=== PATIENT | female | born 1965 | race Caucasian/White ===

== ENCOUNTER → 2017-12-13 15:45 | Outpatient (CLI) | payer OTHER, SELFPAY ==
--- NOTE | 2017-12-13 15:52 | HPBI_ITS ---
MAMMOGRAPHY - BILATERAL SCREENING REASON FOR EXAM: Female, 52 years old. Routine annual screening examination. PERTINENT HISTORY: Non-contributory. TECHNIQUE: Digital bilateral breast jose (3D mammographic acquisition) in the CC and MLO projections. 2-D mediolateral oblique (MLO) and craniocaudad (CC) views of both breasts were obtained. CAD: Full Field Digital Mammography with Computer Added Detection was performed. COMPARISON: Comparison is made with prior examination dated November 28, 2016. FINDINGS: Breast Composition: The breasts are heterogeneously dense, which may obscure small masses. There are no dominant masses or suspicious calcifications. No other significant abnormalities are identified. There has been no significant change since the prior study. HPBI/SCREENING MAMM (CAD), BILAT IMPRESSION: Stable bilateral screening mammogram. Yearly follow-up mammogram recommended. (A) ASSESSMENT CATEGORY: BIRADS Category 1: Negative. A letter regarding these results will be sent to the patient by the facility within 30 days. Approximately 10% of breast cancers are not detected by mammography. A normal mammogram should not delay biopsy of a clinically suspicious abnormality. [id number] Electronically Signed: Khalif Hurst MD at 8:09 EST Tel [phone], Service support ,
== END ==
PROVIDERS: Visit Provider Obstetrics & Gynecology
DX: Z12.31 Encounter for screening mammogram for malignant neoplasm of breast (principal)
CPT/HCPCS: 77063; 77067

== ENCOUNTER → 2018-01-10 14:15 | Outpatient (CLI) | payer OTHER, SELFPAY ==
[2018-01-16 14:01] LABS: HPV Reflexed? NOT INDICATED
== END ==
PROVIDERS: Visit Provider Obstetrics & Gynecology
DX: Z12.4 Encounter for screening for malignant neoplasm of cervix (principal)
CPT/HCPCS: 88175; G0145

== ENCOUNTER → 2018-11-27 13:30 | Outpatient (CLI) | payer OTHER, SELFPAY ==
[2018-11-27 15:26] LABS: Chlamydia Trachomatis by PCR Negative (Negative); Neisserai gonorrhoeae by PCR Negative (Negative); Probe Check PASS; Sample Adequacy Control PASS; Specimen Processing Control PASS
== END ==
PROVIDERS: Visit Provider Obstetrics & Gynecology
DX: Z11.3 Encounter for screening for infections with a predominantly sexual mode of transmission (principal)
CPT/HCPCS: 87491; 87591

== ENCOUNTER → 2018-12-31 14:17 | Outpatient (CLI) | payer OTHER, SELFPAY ==
[2019-01-06 14:34] LABS: HPV Reflexed? NOT INDICATED
== END ==
PROVIDERS: Visit Provider Obstetrics & Gynecology
DX: Z12.4 Encounter for screening for malignant neoplasm of cervix (principal)
CPT/HCPCS: 88175; G0145

== ENCOUNTER → 2019-02-18 | Outpatient (CLI) | payer OTHER, SELFPAY ==
--- NOTE | 2019-02-18 13:09 | BI_ITS ---
MAMMOGRAPHY - BILATERAL SCREENING REASON FOR EXAM: Female, 53 years old. Routine annual screening examination. PERTINENT HISTORY: Non-contributory. TECHNIQUE: Digital bilateral breast jose (3D mammographic acquisition) in the CC and MLO projections. 2-D mediolateral oblique (MLO) and craniocaudad (CC) views of both breasts were obtained. CAD: Full Field Digital Mammography with Computer Added Detection was performed. COMPARISON: Comparison is made with prior study dated December 13, 2017 and June 28, 2017. FINDINGS: Breast Composition: The breasts are heterogeneously dense, which may obscure small masses. There are no dominant masses or suspicious calcifications. No other significant abnormalities are identified. There has been no significant change since the prior study. BI/SCREENING MAMM (CAD), BILAT IMPRESSION: Stable bilateral screening mammogram. Yearly follow-up mammogram recommended. (A) ASSESSMENT CATEGORY: BIRADS Category 1: Negative. A letter regarding these results will be sent to the patient by the facility within 30 days. Approximately 10% of breast cancers are not detected by mammography. A normal mammogram should not delay biopsy of a clinically suspicious abnormality. [id number] Electronically Signed: Khalif Hurst, at 15:10 EDT , Service support ,
== END | disposition home or self-care (01) ==
PROVIDERS: Family Provider Family Medicine; PCP Family Medicine; Referring Provider Obstetrics & Gynecology; Visit Provider Obstetrics & Gynecology
DX: Z12.31 Encounter for screening mammogram for malignant neoplasm of breast (principal)
CPT/HCPCS: 77063; 77067

== ENCOUNTER → 2019-04-30 | Outpatient (CLI) | payer OTHER, SELFPAY ==
--- NOTE | 2019-04-30 12:16 | RAD_ITS ---
STUDY: X-RAY - BILATERAL, Knee(s) REASON FOR EXAM: Female, 54 years old. Old complex to the medial meniscus, left knee. TECHNIQUE: Bilateral tunnel view, weightbearing, bilateral AP weightbearing COMPARISON: None. FINDINGS: Right medial compartment, mild articular surface flattening of the femoral condyle. No significant joint margin osteophytic lipping. No significant spurring of the intercondylar spine. Left knee, there is also mild flattening of the articular surface of the femoral condyle medially. No significant joint margin osteophytic lipping. No significant spurring of the intercondylar spine. RAD/Knees Standing AP Bilateral IMPRESSION: There is minimal flattening of the articular surfaces of the medial femoral condyles bilaterally. There are no significant degenerative features. Electronically Signed: Ezra Bravo MD at 8:29 EDT Tel , Service support ,
--- NOTE | 2019-04-30 12:19 | RAD_ITS ---
STUDY: X-RAY - LEFT KNEE REASON FOR EXAM: Female, 54 years old. Old complex tear medial meniscus left knee, follow-up. TECHNIQUE: Lateral and patella sunrise view(s) of the knee. COMPARISON: None. FINDINGS: No apparent effusion. Trace superior joint margin osteophytic spurring of the patellofemoral articulation. No apparent degenerative features medial and lateral compartments. Evaluation is limited by the absence of frontal view. Periarticular soft tissues unremarkable. RAD/Knee 1 or 2 Views IMPRESSION: Very minimal DJD. Electronically Signed: Ezra Bravo MD at 8:27 EDT Tel , Service support ,
== END | disposition home or self-care (01) ==
LOC: HPRAD 12:12
PROVIDERS: Family Provider Family Medicine; PCP Family Medicine; Referring Provider Family Medicine; Visit Provider Family Medicine
DX: M23.204 Derangement of unspecified medial meniscus due to old tear or injury, left knee (principal)
CPT/HCPCS: 73560; 73565

== ENCOUNTER → 2019-08-28 | Outpatient (CLI) | payer OTHER, SELFPAY ==
--- NOTE | 2019-08-28 11:15 | CER_PTH ---
PATIENT: CHRISTINE HARRELL LOC: [facility] U#:[id number] AGE/SX: 54/F ROOM: RE08/28/[address]: Dr. Jael Nevarez MD : 1965 BED: DIS: 08/28/2019 SPEC #: [id number] RECD: 08/28/19 16:03 STATUS: WEN JOSE #: [id number] DENYS: 08/28/19 11:[address]: Jael Nevarez DEPT: SURGICAL PATHOLOGY RECD BY: Juventino Min ENTERED: 08/31/19 09:27 SP TYPE: CERV OTHR DR: Dr. Theo Covington MD Tissues: Uterine cervix, NOS Procedures: Surgery Specimen Level IV HEADER OPERATION: Cervical polypectomy PRE-OP DIAGNOSIS: Irregular bleeding TISSUE SUBMITTED: Cervical polyp MICROSCOPIC DIAGNOSIS Cervical polyp, polypectomy: Fragments of benign cervical polyp, inflamed. See comment. AM:elvin 09/01/19 COMMENT The polyp has both ectocervical and endocervical mucosa represented. Clinical correlation is suggested. MICROSCOPIC DESCRIPTION Slides are reviewed. GROSS DESCRIPTION Received is one container labeled with the patient's name and not further designated. The specimen consists of a piece of pino-pink polyp measuring 1.5 x 0.5 x 0.5 cm. Also present in the container are multiple pieces of pino mucoid tissue measuring in aggregate 0.5 x 0.5 x 0.1 cm. The polyp is bisected. The entire specimen is submitted in one cassette. / SJ:rg 08/31/19 TC:1 CPT: 13235
== END | disposition home or self-care (01) ==
LOC: LABSPEC 14:11
PROVIDERS: Family Provider Family Medicine; PCP Family Medicine; Visit Provider Obstetrics & Gynecology
DX: N92.6 Irregular menstruation, unspecified (principal)
CPT/HCPCS: 88305

== ENCOUNTER → 2020-08-29 | Outpatient (CLI) | payer OTHER, SELFPAY ==
[2020-08-29 09:23] VITALS: BMI 27.4
[2020-09-05 04:38] LABS: HPV APTIMA, High Risk Negative (Negative)
== END | disposition home or self-care (01) ==
LOC: LABSPEC 13:46
PROVIDERS: PCP Family Medicine; Referring Provider Obstetrics & Gynecology; Visit Provider Obstetrics & Gynecology
DX: Z12.4 Encounter for screening for malignant neoplasm of cervix (principal)
CPT/HCPCS: 87624; 88175; G0145

== ENCOUNTER → 2020-09-05 | Outpatient (CLI) | payer OTHER, SELFPAY ==
[2020-09-05 10:31] VITALS: BMI 26.9
== END | disposition home or self-care (01) ==
LOC: LABSPEC 14:33
PROVIDERS: PCP Family Medicine; Referring Provider Obstetrics & Gynecology; Visit Provider Obstetrics & Gynecology
DX: N93.9 Abnormal uterine and vaginal bleeding, unspecified (principal)

== ENCOUNTER 2020-09-23 05:30 | Day surgery (SDC) | payer OTHER, SELFPAY ==
[2020-09-05 10:31] VITALS: BMI 26.9
--- NOTE | 2020-09-21 10:56 | EKG12_ITS ---
Test Reason : PRE-OP Blood Pressure : / mmHG Vent. Rate : 069 BPM Atrial Rate : 069 BPM P-R Int : 130 ms QRS Dur : 104 ms QT Int : 402 ms P-R-T Axes : 015 049 049 degrees QTc Int : 430 ms Normal sinus rhythm Normal ECG Confirmed by RAFA YEE, JUAN ([id number]), film editor supervisor NEENA WESTON ([id number]) on 09/22/2020 10:52:19 AM Referred By: Shameka Hoff Confirmed By:JUAN CRAIG MD
[2020-09-21 11:12] LABS: Hematocrit 40.8 % (37-47); Hemoglobin 13.6 g/dL (12.0-15.0); Mean Corp Hgb Conc 33.3 g/dL (32-36); Mean Corpuscular Hgb 32.7 pg (27.0-32.0); Mean Corpuscular Volume 98.1 fL (81-99); Mean Platelet Vol. 8.8 fl (6.2-12.0); Platelet Count 251 K/mm3 (150-450); RBC Distribution Width CV 12.1 % (11.6-14.6); RBC Distribution Width SD 43.8 fl (35.1-43.9); Red Blood Count 4.16 M/mm3 (4.2-5.4); White Blood Count 5.1 K/mm3 (4.4-11.0)
[2020-09-21 11:25] LABS: Magnesium 2.3 mg/dL (1.6-2.6)
--- NOTE | 2020-09-22 19:08 | PCM.HPOB.BLA ---
- Problem List (1) Uterovaginal prolapse Status: Acute History and Physical Date of Admission: 09/23/20 Intake Vital Signs 08/29/20 Height 5 ft 10 in 08/29/20 Weight: 191 lb 2 oz 08/29/20 BP 124/88 H Intake Visit Reasons: New pt, Surgical consult, mamta Freedman [employer] Required: No Is patient in pain?: No Allergies No Known Allergies Allergy (Verified 08/29/20 09:23) Medications bupropion HCl 150 mg 24 hr tablet, extended release 150 mg PO QAM 08/29/20 [History Confirmed 08/29/20] conjugated estrogens 0.625 mg/gram vaginal cream 0.625 mg VAGINAL DAILY 08/29/20 [History Confirmed 08/29/20] Is last menstrual period known: No Post menopausal: No Patient : No : No PFSH Medical History Anxiety (Acute) Surgical History (Updated 08/29/20 @ 09:25 by Светлана Romano) s/p lump removed (Resolved) Family History (Updated 08/29/20 @ 09:25 by Светлана Romano) Father Lung cancer Mother Thyroid cancer Other Cancer Social History (Updated 08/30/20 @ 09:[address] Yael Rios MD) Smoking Status: Never smoker alcohol intake: current details: occasionally substance use type: does not use caffeine: Yes what type of physical activity do you participate in: walking, bicycling frequency: 5-6 times per week seatbelt use: always do you feel safe at home: Yes additional social history: - [place] HPI New pt, Surgical consult, mamta Freedman: Details: CHRISTINE HARRELL is a 55 year old who presents for referral for pelvic organ prolapse. Reports notices pelvic pressure. Reports that this has become gradually worse over the past few years. Patient seen by Dr. Hoff who did not feel that she was a candidate for a pessary as her prolapse is too severe. Patient also reports recent period. Has has intermittent spotting over the past year, but not a full period. Pregancy History 4 Elective abortions Hx Para 3 Spontaneous abortions Hx # Term Pregnancies Ectopic pregnancies Hx # Pregnancies Multiple births # of living children Past Pregnancies Del. Date Name GA/Weeks Outcome Route Bth Weight Gen Labor Lgth Anesthesia Del [facility] Provider FOB Unknown Vick Unknown German Unknown Damon ROS Const Constitutional: Reports system reviewed and no additional complaints, except as docu Eyes Eyes: Reports system reviewed and no additional complaints, except as docu ENT ENT: Reports system reviewed and no additional complaints, except as docu Cardio Card: Reports system reviewed and no additional complaints, except as docu Resp Resp: Reports system reviewed and no additional complaints, except as docu GI GI: Reports system reviewed and no additional complaints, except as docu : Reports prolapse symptoms; denies blood in urine, pelvic pain, sexual problems, urinary hesitancy, urinary urgency, vaginal discharge, vaginal dryness, vaginal odor or vaginal itching Musc Musc: Reports system reviewed and no additional complaints, except as docu Skin Skin/Breast: Reports system reviewed and no additional complaints, except as docu Neuro Neuro: Reports system reviewed and no additional complaints, except as docu Psych Psych: Reports system reviewed and no additional complaints, except as docu Exam Const General: cooperative, healthy appearing, comfortable, no acute distress, well developed, well groomed Nutritional Appearance: average body habitus, well nourished Orientation: alert, awake, oriented x3 HENMT Head: normal to inspection, normocephalic, atraumatic Eyes Pupils: PERRL, accommodation normal EOM: EOM intact bilaterally Resp Effort & Inspection: normal respiratory effort, able to speak in complete sentences, symmetric chest movement Cardio Rate: regular rate GI Inspection: normal to inspection, non-distended Palpation: soft, no guarding, no masses, not rigid, nontender General: bladder normal to palpation External Female Exam: normal external appearance, normal appearance of the urethra, no erythema, no tenderness externally, no lesions, No lesion of urethra Urethra: normal appearance of the urethra, no lesions Speculum Exam - Vagina: normal appearance of the vagina, normal vaginal discharge, normal vaginal discharge, not erythematous, no lacerations, no lesions, No vaginal bleeding, no masses, no swelling, nontender Speculum Exam - Cervix: normal appearance of the cervix, no cervical discharge, no lesions, no masses, nontender Bimanual Exam- Vagina & Uterus: normal bimanual exam, normal vaginal palpation, uterine size normal, bladder normal to palpation, uterine shape normal, No cervical tenderness, uterine mobility normal, uterine consistency normal, normal cervical palpation, uterus non-tender Bimanual Exam- Adnexa, other: normal adnexae, adnexae mobile, no adnexal masses, adnexae non-tender, No cul-de-sac fullness, No cul-de-sac tenderness, No cul-de-sac nodularity, rectocele, cystocele, vaginal apex descent (stage II) Recto-Vaginal: no cul-de-sac fullness, no cul-de-sac tenderness, no cul-de-sac nodularlity Pelvic Support: cystocele, rectocele, vaginal apex descent (stage II) OB/External & Speculum: No vaginal bleeding Speculum Exam: no vaginal bleeding Neuro General: alert, awake, oriented x3, CN's II-XI intact bilaterally Cranial Nerves: PERRL, accommodation normal, EOM intact bilaterally Cognition: normal cognition Speech: speech normal Gait: normal gait Psych Appearance: grossly normal, well kempt Mental Status: mental status grossly normal Affect: normal affect Speech and Movement: speech and movement normal Attitude: cooperative Thought Process: normal Thought Content: normal Judgment: judgment good Assessment & Plan 1. Incomplete uterovaginal prolapse N81.2 Plan Patient presents as referral for pelvic organ prolapse from Dr. Hoff. Plans to have pelvic floor reconstruction. Discussed performing hysterectomy at the time of pelvic floor reconstruction. Recommend EMB prior to surgery as patient is still having intermittent bleeding and it is necessary to rule out endometrial cancer or hyperplasia. Pap performed today. Risks, benefits, indications, and alternatives to the procedure were discussed with the patient including bleeding, infection, and visceral or vascular injury. Discussed the possibility of excessive blood loss due to vascular injury or bleeding with fibroid uterus. Patient is agreeable to blood transfusion if medically necessary. Discussed the possibility of infection at the incision sites, inside the abdomen, or at the vaginal cuff. Discussed that this could require repeat hospitalization or reoperation. We discussed the possibility of damage to surrounding structures. Discussed the possibility of injury to bowel, bladder, or ureters. Discussed that if one of these injuries was identified at the time of the procedure, we would consider an intraoperative consult with general surgery or urology. Discussed that this could require laparoscopy or laparotomy to repair. Discussed the possibility of delayed diagnosis of bowel, bladder, or ureteral injury, and that this could require hospitalization after discharge. Patient is aware that in the event of injury to bowel bladder, bladder, or ureters she could require additional surgical interventions. We discussed the risks and benefits of oophorectomy at the time of hysterectomy. She has not fully gone through menopause and wishes to keep her ovaries. Recommend salpingectomy if able at the time of hysterectomy. Discussed that there is a possibility that we would not be able to complete salpingectomy at the time of surgery. Patient voices good understanding of the above and all questions were answered. Handouts provided from [facility] and up-to-date with information regarding surgery. UPDATE- I have seen the patient and performed any clinically relevant updates to the history and physical exam. Yael Rios MD
[2020-09-23] VITALS (17 sets, daily range): BP systolic 94–131; BP diastolic 54–84; PULSE 58–103; RESP 16–18; TEMP 36–36.9; O2SAT 85–100; BMI 26.9
[2020-09-23 06:11] LABS: Bedside Glucose 117 mg/dL (70-110)
[2020-09-23 06:16] LABS: Internal QC Validated? YES +Cl - CLEAR BKGD; Pregnancy, Urine Negative Negative
[2020-09-23] MEDS: dexAMETHasone 4 MG/ML Vial 8 MG IV (06:17)
[2020-09-23] MEDS: Acetaminophen 500 MG Tablet 1000 MG PO ×3 (06:32→22:06)
[2020-09-23] MEDS: Celecoxib 200 MG Capsule 400 MG PO (06:33)
[2020-09-23] MEDS: Lactated Ringers 1,000 ML 40 ML IV (07:00)
--- NOTE | 2020-09-23 07:30 | HYST_PTH ---
PATIENT: CHRISTINE HARRELL LOC: [facility] [place] U#:[id number] AGE/SX: 55/F ROOM: RE09/23/[address]: Dr. Shameka Hoff MD : 1965 BED: DIS: 09/24/2020 SPEC #: [id number] RECD: 09/23/20 13:24 STATUS: WEN JOSE #: [id number] DENYS: 09/23/20 07:[address]: Shameka Hoff DEPT: SURGICAL PATHOLOGY RECD BY: Gemma Fang ENTERED: 09/23/20 13:54 SP TYPE: HYSTERECT OTHR DR: MD Dr. Theo Joiner MD Tissues: Uterus, NOS Procedures: Surgery Specimen Level V HEADER OPERATION: ERAS, vaginal hysterectomy, salpingectomy PRE-OP DIAGNOSIS: Incomplete uterovaginal prolapse TISSUE SUBMITTED: Uterus, cervix, bilateral fallopian tubes MICROSCOPIC DIAGNOSIS Uterus, hysterectomy: Cervix - nabothian cysts and mild chronic inflammation. Endometrium - proliferative endometrium. Myometrium - adenomyosis and leiomyomas. Right and left fallopian tubes - no pathologic change. AM:elvin 09/26/20 MICROSCOPIC DESCRIPTION Slides are reviewed. GROSS DESCRIPTION Received in fixative is one container labeled with the patient's name and designated uterus, cervix, bilateral fallopian tube. The specimen consists of a hysterectomy specimen consisting of uterus with cervix and detached bilateral fallopian tubes. The uterus with cervix weighs 78 gm and measures 9.5 x 5.5 x 4 cm. The serosal surface is pino, glistening. The ectocervical mucosa is unremarkable. The external os is oval and patulous in contour. The endocervical canal measures 3 cm in length and the endocervical mucosa is unremarkable. Sections of the cervix reveal multiple cysts filled with mucoid material. The triangular endometrial cavity measures 4 cm in length and 3 cm in width. The endometrium is pino, glistening without any mass lesion and measures 0.2 cm in thickness. Sections of the uterine wall reveal three nodular masses. The largest mass measures 1.5 cm in greatest dimension. Sections of these masses reveal pino whorled cut surfaces without areas of hemorrhage, necrosis or cystic degeneration. The uninvolved uterine wall measures 2 cm in thickness. The fallopian tubes are not identified as right or left and measures 3.5 and in length and 0.5 cm in diameter and 4 cm in length and 0.6 cm in diameter. The fimbrial end is identified. Sections reveal unremarkable cut surfaces. Medical Claims Manager sections are submitted in nine cassettes as follows: 1 - anterior cervix, 2 - posterior cervix, 3 & 4 - anterior uterine wall, 5 & 6 - posterior uterine wall, 7 - nodular masses, 8 & 9 - bilateral fallopian tubes with each cassette containing one fallopian tube. / ANCELMO:elvin 09/23/20 TC:1 CPT: 03209
[2020-09-23] MEDS: Cefazolin 2 GM in 0.9% Normal Saline 100 ML IV (07:45)
--- NOTE | 2020-09-23 07:45 | OP.PCM_ITS ---
Problem List (1) Uterovaginal prolapse Status: Acute Report of Operation Date of Procedure: 09/23/20 Pre-Operative Diagnosis: Uterovaginal prolapse Post-Operative Diagnosis: Same Surgery/Procedure Performed:: Anterior and posterior repair, sacrospinous ligament fixation, cystoscopy Type of Anesthesia:: General Estimated Blood Loss (mL): 25cc Description of Procedure: The patient is a 55-year-old female who presented to the office with pelvic organ prolapse desiring surgical intervention after discussing options. She was evaluated with urodynamics and cystoscopy and agreed to proceed after discussion of all risks benefits and alternatives. Informed consent also included a discussion of the risks of COVID-19. The patient was taken to the operating room placed on the operating room table. Anesthesia monitor the head, neck, airway, IV access and vital signs throughout the case. Once anesthesia was appropriate administered the patient was placed into dorsal lithotomy position in Trendelenburg. A Iglesias catheter was inserted to straight drain and the bladder was emptied. A vaginal hysterectomy and bilateral salpingoectomy was performed by Dr. Rios. At this time the case was turned to nj after closure of the vaginal cuff. With the uterus out, the apex of the vagina required support, there was very minimal cystocele present and there was a lack of posterior support. The decision was made to provide further apical support with a sacrospinous ligament fixation on the patient's right side in addition to a posterior repair. The posterior vaginal wall was isolated and injected submucosally with vasopressin. A midline incision was made in both sharp and blunt dissection was performed until the rectovaginal fascia was identified bilaterally. On the right side blunt dissection continued until the sacrospinous ligament was identified and freed from surrounding tissues. Using the Capio device, a Monodek suture was passed through the sacrospinous ligament and then passed into the apex of the vagina in full-thickness fashion through the vaginal mucosa. The rectovaginal fascia was then brought together with interrupted 2-0 Vicryl. The perineal body was supported also with 2-0 Vicryl sutures. The posterior vaginal wall mucosa was then brought together with running interlocking 2-0 Vicryl. The sacrospinous ligature was then tied down. A cystourethroscopy was performed through the urethra revealing no injury to the urinary bladder or urethra. A 5 Mauritian whistle-tip catheter was easily inserted into each ureteral orifice and advanced to 20 cm bilaterally. There is no evidence of blood or obstruction. The cystoscope was removed and the Iglesias catheter was replaced. The patient's vagina was packed with Premarin cream and vaginal packing. She was awakened and taken to the recovery room in good condition. There were no complications during this procedure. Grafts/Implants Used: None - Complications None - Admit VTE Documentation VTE Present on Admission: Yes VTE Mechan Device Prophylaxis: SCD's VTE Pharm Prophylaxis ordered?: Yes
--- NOTE | 2020-09-23 07:47 | DCINST_ITS ---
Discharge Diet: No Restrictions Discharge Activity: May Shower May resume sexual activity in: 8 weeks Additional Activity Instructions:: No exercise, no strenuous activity, no lifting over 5 pounds, no swimming, tub bathing, hot tubs, no sexual activity, no vacuuming Call your doctor if your incision/area has: Continuous Slow Oozing, Sudden Increased Bleeding, Increased Pain/ Swelling, Increased Redness, Foul Smelling Discharge, Swelling at the incision site Call your doctor if you observe: Fever of 101 or Higher, Inability to urinate, Inability to have a bowel movement Allergies/Adverse Reactions: Allergies No Known Allergies Allergy (Verified 09/23/20 06:11) Medications to take at Discharge bupropion HCl 150 mg 24 hr tablet, extended release 150 mg PO BID 08/29/20 conjugated estrogens 0.625 mg/gram vaginal cream 0.625 mg VAGINAL .TWICE WEEKLY 08/29/20 Multivitamin 1 ea PO DAILY 09/13/20 Cephalexin [Keflex] 500 mg PO Q12 3 Days #6 cap 09/23/20 The following prescriptions were given: Cephalexin [Keflex] 500 mg PO Q12 3 Days #6 cap Transmission Status: Pending to [facility] Primary Care Physician: Theo Covington MD [Primary Care Provider] - Test Results: Test results from this visit will be discussed in further detail at your follow- up appointment, if applicable. Please Follow Up With: Shameka Hoff MD When: call office for appt Proposed Discharge Date: 09/24/20
[2020-09-23] MEDS: dexAMETHasone 10 MG/ML Vial 8 MG IV (07:55)
[2020-09-23] MEDS: Estrogens,Conj. 1 Tube 1 DOSE (08:10)
[2020-09-23] MEDS: Vasopressin 20 UNITS/ML Vial (08:10)
[2020-09-23] MEDS: Lactated Ringers 1,000 ML 70 ML IV (08:15)
--- NOTE | 2020-09-23 11:30 | EKG12_ITS ---
Test Reason : POST OP Blood Pressure : / mmHG Vent. Rate : 073 BPM Atrial Rate : 073 BPM P-R Int : 142 ms QRS Dur : 106 ms QT Int : 438 ms P-R-T Axes : 065 061 060 degrees QTc Int : 482 ms Normal sinus rhythm Nonspecific T wave abnormality Prolonged QT Abnormal ECG Confirmed by RAFA YEE, JUAN ([id number]), design editor NEENA WESTON ([id number]) on 09/28/2020 1:12:21 PM Referred By: Shameka Hoff Confirmed By:JUAN CRAIG MD
[2020-09-23] MEDS: Ketorolac 30 MG/ML Syringe IV ×2 (13:22→18:17)
[2020-09-23] MEDS: Ondansetron 4 MG/2 ML Vial IV (13:22)
[2020-09-23] MEDS: 0.9% Saline Lock 10 ML Syringe IV (13:22)
--- NOTE | 2020-09-23 13:26 | PCM.OPRPT ---
Problem List (1) Uterovaginal prolapse Status: Acute Report of Operation Date of Procedure: 09/23/20 Pre-Operative Diagnosis: Pelvic organ prolapse Post-Operative Diagnosis: Same Surgery/Procedure Performed:: Total vaginal hysterectomy, bilateral salpingectomy Description of Surgical Findings:: Stage III pelvic organ prolapse. Normal-appearing uterus, cervix, bilateral tubes and ovaries patient support representative: Shameka Hoff Type of Anesthesia:: General Specimen's removed: Uterus, cervix, bilateral fallopian tubes Estimated Blood Loss (mL): 100 cc Description of Procedure: Patient was taken to the operating room and was placed under general anesthesia was prepped and draped in normal sterile fashion in the dorsal lithotomy position. Preoperative antibiotics and SCDs and Iglesias catheter was placed inside the bladder. Weighted speculum was placed in the vagina and the anterior and posterior lip of the cervix was grasped with 2 Brendon clamps and circumferentially injected with dilute vasopressin. A circumferential incision was made with a scalpel and the posterior cul-de-sac was entered into sharply and a longneck speculum was placed. The anterior cul-de-sac was also dissected down and entered into sharply and the uterosacral ligaments were clamped cut and suture ligated bilaterally followed by the cardinal ligaments which were Clamped cut and suture ligated bilaterally with 0 Vicryl. The uterus serially descended and progressive bites were taken bilaterally up to the level of the utero-ovarian ligament bilaterally which was clamped transected and double ligated with 0 Vicryl suture and 0 Vicryl free tie. Bilateral fallopian tubes and ovaries were well visualized and noted be within normal limits and the bilateral fallopian tubes were then clamped across the mesosalpinx with a Karena clamp, transected, and tied off. Excellent hemostasis was noted. Posterior peritoneum and the vagina were closed with [id number] 0 Vicryl pop offs including the posterior and anterior peritoneum in the reapproximation. Excellent hemostasis was noted. All instruments removed from the vagina clear urine was noted at the end of the procedure and counts were correct. next Dr Hoff proceeded with her portion of the procedure. - Complications None apparent - Admit VTE Documentation VTE Present on Admission: No VTE Mechan Device Prophylaxis: SCD's VTE Pharm Prophylaxis ordered?: No Multi Select Codes - Urinary/Genital Urinary/Genital CPT Codes: 33902 TVH+BS/O <250gr uterus
[2020-09-24 01:30] VITALS: BP 103/58; PULSE 61; RESP 16; TEMP 36.5; O2SAT 96
[2020-09-24] MEDS: Ketorolac 30 MG/ML Syringe IV ×2 (01:30→06:19)
[2020-09-24 06:16] VITALS: BP 93/66; PULSE 64; RESP 16; TEMP 37; O2SAT 95
[2020-09-24] MEDS: Acetaminophen 500 MG Tablet 1000 MG PO (06:19)
[2020-09-24 07:08] VITALS: O2SAT 96
[2020-09-24 07:15] LABS: Mean Corp Hgb Conc 32.4 g/dL (32-36); Mean Corpuscular Hgb 32.3 pg (27.0-32.0); Mean Corpuscular Volume 99.5 fL (81-99); Mean Platelet Vol. 9.2 fl (6.2-12.0); Platelet Count 225 K/mm3 (150-450); RBC Distribution Width SD 43.9 fl (35.1-43.9); Red Blood Count 3.72 M/mm3 (4.2-5.4)
--- NOTE | 2020-09-24 08:50 | PCM.PN.OB ---
Patient Problems: Active and Suspected Problems (Last Reviewed 09/05/20 @ 10:31 by Светлана Romano) Uterovaginal prolapse (Acute) Subjective: Pain controlled. Doing well. No SOB, CP. Ambulating and tolerating po. - Physical Exam Vitals/I&O's: Vital Signs Temp Pulse Resp BP Pulse Ox 98.6 F 64 16 93/66 95 09/24/20 06:16 09/24/20 06:16 09/24/20 06:16 09/24/20 06:16 09/24/20 06:16 Oxygen Flow Rate (L/min) 2 Oxygen Delivery Method Room Air Weight: 187 lb 6.287 oz Body Mass Index (BMI) 26.9 Intake and Output for Last 24 Hours 09/22/20 09/23/20 09/24/20 23:59 23:59 23:59 Intake Total 1967.5 / 1967.5 Output Total 2850 / 2850 850 / 850 Balance -882.5 / -882.5 -850 / -850 General: Alert, Oriented x3 Abdomen: Soft, Non-Distended, - - Dressing dry and intact. Appropriately tender Microbiology Past 72 Hours 09/21/20 11:09 Interface Orders SARS-CoV-2 Antigen (Rapid) - Final Laboratory Results 09/24/20 06:36: WBC 9.0, RBC 3.72 L, Hgb 12.0, Hct 37.0, MCV 99.5 H, MCH 32.3 H, MCHC 32.4, RDW Std Deviation 43.9, RDW Coeff of Mei 12.0, Plt Count 225, MPV 9.2 Current Medications Acetaminophen (Acetaminophen 500 Mg Tablet) 1,000 mg PO Q8 YANCY Last Admin: 09/24/20 06:19 Dose: 1,000 mg Documented by: Sodium Chloride () 250 mls @ 15 mls/hr IV .[id number] PRN PRN Reason: Saline Flush Last Admin: 09/23/20 16:43 Dose: 15 mls/hr Documented by: Sodium Chloride () 250 mls @ 15 mls/hr IV .[id number] PRN PRN Reason: Additional IVPB Infusion Ketorolac Tromethamine (Ketorolac 30 Mg/Ml Syringe) 30 mg IV Q6H [facility] Stop: 09/28/20 13:16 Last Admin: 09/24/20 06:19 Dose: 30 mg Documented by: Ondansetron HCl (Ondansetron 4 Mg/2 Ml Vial) 4 mg IV Q4H PRN PRN PRN Reason: NAUSEA Last Admin: 09/23/20 13:22 Dose: 4 mg Documented by: Oxycodone HCl (Oxycodone 5 Mg Tablet) 5 - 10 mg PO Q4H PRN PRN PRN Reason: Pain Score 4-10 Sodium Chloride (0.9% Saline Lock 10 Ml Syringe) 10 - 40 ml IV UD PRN PRN Reason: SALINE FLUSH Last Admin: 09/23/20 13:22 Dose: 10 ml Documented by: Medical Necessity - Tobacco Use Smoking Status: Never smoker Tobacco Use: Non-smoker Assessment/Plan All Active Problems (Last Reviewed 09/05/20 @ 10:31 by Светлана Romano) Uterovaginal prolapse (Acute) Anxiety (Acute) TVH BS combo case with Dr Hoff. Stable See Dr Hoff's note and discharge information for patient. care Plans home today
[2020-09-24 10:30] VITALS: BP 106/64; PULSE 77; RESP 18; TEMP 36.6; O2SAT 97
--- NOTE | 2020-09-24 10:56 | PCM.PN.BLA ---
Progress Note Doing well. Tolerating PO intake, pain controlled, no issues overnight. Vital signs are good. Catheter and packing are out. POD#1 await trial of void home today follow up in the office in 2 weeks
== END 2020-09-24 12:25 | disposition home or self-care (01) ==
LOC: SDC 05:30 → AC 05:30 → MS3 12:14
PROVIDERS: Anesthesiology; Obstetrics & Gynecology; PCP Family Medicine; Referring Provider Urology; Visit Provider Urology
PROC: (CPT 58260; principal; 2020-09-23 07:10)
PROC: (CPT 57260; 2020-09-23 07:10)
DX: N81.2 Incomplete uterovaginal prolapse (principal); N72 Inflammatory disease of cervix uteri; N80.0 Endometriosis of uterus; D25.9 Leiomyoma of uterus, unspecified; N88.8 Other specified noninflammatory disorders of cervix uteri; F41.9 Anxiety disorder, unspecified; Z79.899 Other long term (current) drug therapy; Z20.828 Contact with and (suspected) exposure to other viral communicable diseases
CPT/HCPCS: 00944; 57260; 57282; 58262; 36415; 81025; 82962; 83735; 85027; 86850; 86900; 86901; 87426; 88307; 93005; C9803; J7050; J7120; A4216; C1758; J2405

== ENCOUNTER 2020-10-01 03:51 | Emergency (ER) | payer OTHER, SELFPAY ==
[2020-09-23 12:40] VITALS: BMI 26.9
[2020-10-01 03:52] VITALS: BP 127/95; PULSE 80; RESP 16; TEMP 36.3; O2SAT 98; BMI 26.5
[2020-10-01 04:23] LABS: Absolute Lymphocyte Count 1.37 X10^3/uL (0.83-4.51); Absolute Neutrophil Count 3.4 X10^3/uL (2.0-7.7); Basophil# 0.04 X10^3/uL; Basophil% 0.7 % (0-1); Eosinophils% 1.9 % (0-5); Hematocrit 36.9 % (37-47); Hemoglobin 12.6 g/dL (12.0-15.0); Lymphocyte # 1.37 X10^3/ul (4.0); Lymphocyte % 25.5 % (19-41); Mean Corp Hgb Conc 34.1 g/dL (32-36); Mean Corpuscular Hgb 32.5 pg (27.0-32.0); Mean Corpuscular Volume 95.1 fL (81-99); Mean Platelet Vol. 8.5 fl (6.2-12.0); Monocyte# 0.48 X10^3/uL; Monocyte% 8.9 % (0-10); NRBC Flagged by Analyzer 0 % (0-5); Neutrophil # 3.37 X10^3/uL (2.7-7.7); Neutrophil % 62.6 % (47-70); Platelet Count 240 K/mm3 (150-450); RBC Distribution Width CV 11.9 % (11.6-14.6); RBC Distribution Width SD 41.7 fl (35.1-43.9); Red Blood Count 3.88 M/mm3 (4.2-5.4); White Blood Count 5.4 K/mm3 (4.4-11.0)
[2020-10-01 04:41] LABS: Anion Gap 4 (5-15); BUN 12 mg/dL (7-18); BUN/Creat Ratio 12.4 RATIO (10-20); Calcium,Total 8.9 mg/dL (8.5-10.1); Chloride 109 mmol/L (98-107); Creatinine, Serum 0.97 mg/dL (0.55-1.02); EST Glomerular Filtration Rate 64 mL/min (>60); Est Glom Filt Rate - Afr Amer 77 mL/min (>60); Estimated Creatinine Clearance 72.53 ml/min; Glucose 89 mg/dL (74-106); Sodium Level 139 mmol/L (136-145)
--- NOTE | 2020-10-01 04:43 | ED.DCSUM_ITS ---
- ER Visit Summary Date of Service: 10/01/20 Chief Complaint: Vaginal bleeding History of Present Illness: The patient is a 55 F who presents with vaginal bleeding. 1 week ago she had a total abdominal hysterectomy with posterior repair done by Dr. Hoff. Tonight she woke up and had a gush of blood from her vagina. She states she is having some abdominal soreness but has not changed since before the gush of blood. She is on no blood thinning medications. She contacted her surgeon who told her to come the emergency department to be evaluated. Physical Examination: Vital signs reviewed. HEENT exam unremarkable. Heart is regular rate and rhythm without murmurs. Lungs are clear to auscultation. Abdomen is soft and nontender. exam is deferred extremities reveal no edema. Skin exam normal. Neurologic exam normal. Test Results: Hemoglobin is 12.6 Emergency Department Course and Treatment: The exam was deferred because Dr. Hoff came to the emergency department and evaluated this patient herself. She states that she had a slight opening in the posterior repair which is likely where the blood was coming from. She is going to let the patient go home since her vital signs and hemoglobin are stable. She is going to follow-up on Saturday. Treatment Plan: [] Disposition: Discharge Impression: Vaginal bleeding status post hysterectomy This note was generated with [employer] dictation software. It may contain incorrect words, spelling, and punctuation that were not noted in review of the chart prior to signing ED Disposition - Plan for ED Patient: Disposition: Home or Assisted Living Instructions: ED Post Op Wound Check, Bleeding Referrals: Theo Covington MD [Primary Care Provider] -
--- NOTE | 2020-10-01 04:44 | CON.PCM_ITS ---
Problem List (1) Vaginal bleeding Status: Acute Reason for Consult Date of Consultation: 10/01/20 Reason for Consultation: vaginal bleeding History of Present Illness: The patient is a 55 year old F [who recently underwent a vaginal hysterectomy with posterior repair, sacrospinous ligament fixation and cystoscopy. She has been spotting throughout the week and awoke this morning with increased blood dark red in color onto her pad. She called and I sent her into the hospital for evaluation. She denies any evidence of infection including dysuria or voiding concerns. No fevers or chills. No pain. In fact the pain from her buttocks has been improving over the past week as well and she has not taken any pain medication since yesterday.] Past Medical History Medical History: Medical History (Last Reviewed 10/01/20 @ 04:[address] Shameka Hoff MD) Anxiety (Acute) F41.9 Allergies No Known Allergies Allergy (Verified 10/01/20 04:01) Home Medications: Ambulatory Orders Medication Instructions Recorded bupropion HCl 150 mg 24 hr tablet, 150 mg PO BID 08/29/20 extended release conjugated estrogens 0.625 mg/gram 0.625 mg VAGINAL .TWICE WEEKLY 08/29/20 vaginal cream Multivitamin 1 ea PO DAILY 09/13/20 Surgical History: Surgical History (Last Reviewed 10/01/20 @ 04:[address] Shameka Hoff MD) History of total vaginal hysterectomy (TVH) Z90.710 Hx of bilateral salpingectomy Z90.79 pelvic floor reconstruction s/p lump removed from head Smoking Status: Never smoker Review of Systems Constitutional: Denies: Chills, Fever Eyes: Denies: Vision Change HEENT: Denies: Difficulty Swallowing, Visual Changes Cardiovascular: Denies: Chest Pain, Chest Pressure Respiratory: Denies: Cough, Shortness of Breath Gastrointestinal: Denies: Abdominal Pain, Constipation, Diarrhea, Nausea, Vomiting Genitourinary: Denies: Dysuria, Frequency, Hematuria, Incontinence, Urgency Gynecological: Reports: Vaginal bleeding. Denies: Vaginal discharge, Vaginal itching Musculoskeletal: Denies: Muscle pain Skin: Denies: Wounds Neurological: Denies: Difficulty swallowing Endocrine: Denies: Change in Body Habitus Patient Problems: Active and Suspected Problems (Last Reviewed 10/01/20 @ 04:[address] Shameka Hoff MD) Vaginal bleeding (Acute) - Physical Exam Vitals/I&O's: Vital Signs Temp Pulse Resp BP Pulse Ox 97.3 F L 80 16 127/95 H 98 10/01/20 03:52 10/01/20 03:52 10/01/20 03:52 10/01/20 03:52 10/01/20 03:52 Oxygen Delivery Method Room Air Weight: 83.8 kg Body Mass Index (BMI) 26.5 General: Alert, Oriented x3, Cooperative HEENT: Atraumatic, Normocephalic Oral: Moist Mucosa Neck: Supple, Trachea Midline Lungs: Normal air movement Cardiovascular: Regular rate, Regular Rhythm Abdomen: Soft, Non Tender, Non-Distended, - - Vaginal examination reveals at the apex of the posterior vaginal incision approximately 1 cm in length has opened and is minimally draining. The amount of blood present filled 2 OB swabs, no acute bleeding identified. No evidence of infection. The cuff is closed. Extremities: No clubbing, No cyanosis Skin: No rashes Musculoskeletal: No Muscle Wasting Neurological: Cranial nerves II-XII grossly intact Psych/Mental Status: Normal Affect Laboratory Results 10/01/20 04:18: WBC 5.4, RBC 3.88 L, Hgb 12.6, Hct 36.9 L, MCV 95.1, MCH 32.5 H, MCHC 34.1, RDW Std Deviation 41.7, RDW Coeff of Mei 11.9, Plt Count 240, MPV 8.5, Immature Gran % (Auto) 0.400, Neut % (Auto) 62.6, Lymph % (Auto) 25.5, [place] % (Auto) 8.9, Eos % (Auto) 1.9, Baso % (Auto) 0.7, Absolute Neuts (auto) 3.4, Absolute Lymphs (auto) 1.37, Nucleated RBC % 0 10/01/20 04:18: Sodium 139, Potassium 4.0, Chloride 109 H, Carbon Dioxide 26.0, Anion Gap 4 L, BUN 12, Creatinine 0.97, Estim Creat Clear Calc 72.53, Est GFR (MDRD) Af Amer 77, Est GFR (MDRD) Non-Af 64, BUN/Creatinine Ratio 12.4, Glucose 89, Calcium 8.9 Assessment/Plan All Active Problems (Last Reviewed 10/01/20 @ 04:[address] Shameka Hoff MD) Vaginal bleeding (Acute) Uterovaginal prolapse (Acute) Anxiety (Acute) With normal blood work and no acute hemorrhage, she will be discharged home and will return to the office on Saturday for repeat examination. If there is wor sening of bleeding we will proceed with intervention with closure under anesthesia. Patient was given a more direct line to contact me over the weekend and will update me later today as well as tomorrow with her status. and patient agree with plan.
[2020-10-01 05:03] VITALS: RESP 16
== END 2020-10-01 05:03 | disposition home or self-care (01) ==
PROVIDERS: Emergency Provider Emergency Medicine; PCP Family Medicine; Referring Provider Urology
DX: N93.9 Abnormal uterine and vaginal bleeding, unspecified (principal); Z98.890 Other specified postprocedural states
CPT/HCPCS: 80048; 85025; 99284; A4216